=== PATIENT | female | born 1950 | race Caucasian/White ===

== ENCOUNTER 2019-03-25 16:48 | Emergency (ER) | payer MEDICARE ==
[~2019-03-25] VITALS: Ht 152.4 cm; Wt 73.0 kg
[~2019-03-25 16:48] MED LIST: ALBU2.5V8 INH; ATOR20TA58 PO; CARB1TAB43 PO; FLUT1DIS IH; HYDR-2769 PO; LEVO100T5 PO; LEVO50TA5 PO; MULT-208 PO; OXYC1TAB15 PO; PANT40TA77 PO; PREG75CA PO; ROPI1TAB PO; TRAZ-118 PO; WARF1TAB74 PO; [UNRECOGNIZED DRUG - OTHER]; [UNRECOGNIZED DRUG - REMARK]
[2019-03-25] MEDS ORDERED: rOPINIRole 1 MG TABLET. PO ONE (17:30)
[2019-03-25] MEDS ORDERED: CARBIDOPA/LEVODOPA 25/100MG TABLET PO ONE (17:30)
--- NOTE | 2019-03-25 17:30 | PHYS DOC ---
Past Medical History Past Medical History: Diabetes-Type II Additional Past Medical Histor: RLS Alcohol Use: None Drug Use: None Adult General Chief Complaint Chief Complaint: UPPER EXTREMITY PAIN HPI HPI Patient is a 68-year-old female with past medical history of restless leg syndrome and diabetes mellitus is presenting to the emergency department with restless arm and restless leg. Patient states that she ran out of her medication on Sunday and since then has developed increasing movement of the right leg and right arm which she cannot control. She states that this is never happened before and she controls her restless leg syndrome with ropinirole and carbidopa/levodopa. She states that she can get back to the pharmacy tonight but wanted to make sure that she was not having a stroke. Patient has no focal neurologic deficits. Patient denies fever, chills, nausea, vomiting, chest pain, shortness of breath, abdominal pain, constipation, and diarrhea. Denies trauma. Review of Systems Review of Systems Constitutional: Denies fever or chills Eyes: Denies redness or eye pain HENT: Denies nasal congestion or sore throat Respiratory: Denies cough or shortness of breath Cardiovascular: Denies chest pain or palpitations GI: Denies abdominal pain, nausea, or vomiting : Denies dysuria or hematuria Musculoskeletal: Denies back pain or joint pain Integument: Denies rash or skin lesions Neurologic: Denies headache, focal weakness or sensory changes, restless right arm and right leg Complete systems were reviewed and found to be within normal limits, except as documented in this note. Current Medications Current Medications Current Medications Medications (Trade) Dose Ordered Sig/Tammie Start Time Stop Time Status Last Admin Dose Admin Carbidopa/Levodopa (Sinemet 25/100) 1 tab 1X ONCE 03/25/19 17:30 03/25/19 17:31 DC 03/25/19 17:40 1 TAB Lorazepam (Ativan Inj) 1 mg 1X ONCE 03/25/19 17:30 03/25/19 17:31 DC 03/25/19 17:40 1 MG Ropinirole HCl (Requip) 1 mg 1X ONCE 03/25/19 17:30 03/25/19 17:31 DC 03/25/19 17:40 1 MG Allergies Allergies Allergies Coded Allergies Type Severity Reaction Last Updated Verified No Known Drug Allergies 01/19/15 No Physical Exam Physical Exam Constitutional: Well developed, well nourished, no acute distress, non-toxic appearance HENT: Normocephalic, atraumatic, oropharynx moist Eyes: PERRL, EOMI, conjunctiva normal, no discharge Neck: Normal range of motion, no tenderness, supple Cardiovascular: Heart rate normal, regular rhythm Lungs & Thorax: Bilateral breath sounds clear to auscultation, no wheezing Abdomen: Soft, no tenderness Skin: Warm, dry, no erythema, no rash Back: No tenderness, no CVA tenderness Extremities: No tenderness, ROM intact, no edema, restless arm and restless right leg, tremors decrease with intention of movement Neurologic: Alert and oriented X 3, normal motor function, normal sensory function, no focal deficits noted, NIH of 0 Psychologic: Affect normal, judgement normal, mood normal, mildly anxious Current Patient Data Vital Signs Vital Signs Date Time Temp Pulse Resp B/P (MAP) Pulse Ox O2 Delivery O2 Flow Rate FiO2 03/25/19 17:31 102 188/88 (121) 97 Room Air 03/25/19 16:55 98.1 18 98.1 EKG EKG [] Radiology/Procedures Radiology/Procedures [] Course & Med Decision Making Course & Med Decision Making Patient is a 68-year-old female with past medical history of restless leg syndrome and diabetes that is presenting to the emergency department with restless right leg and restless right arm. Patient was seen and examined at bedside. Physical exam was significant for mild anxiety, right arm and right leg tremor that decreases with intentional movement. Patient states that she has missed her last couple doses of ropinirole and carbidopa/levodopa and that she will be able to get back to the pharmacy later tonight. Patient will be given doses of her home medications along with Ativan for symptomatic improvement. Patient stable for discharge with outpatient follow-up with PCP. Discussed findings and plan with patient and family, who acknowledge understanding and agreement. Dragon Disclaimer Dragon Disclaimer This electronic medical record was generated, in whole or in part, using a voice recognition dictation system. Departure Departure Impression: Primary Impression: Restless arm Additional Impressions: Restless leg Anxiety Disposition: HOME, SELF-CARE Condition: STABLE Referrals: ALISON BRYAN MD (PCP) Patient Instructions: Restless Legs Syndrome Additional Instructions: Please go fill your prescriptions for your medications tonight and continue as previously prescribed. Scripts Ropinirole Hcl (REQUIP) 3 Mg Tablet 3 MG PO QHS, #2 TAB Prov: TANNA YOO DO 03/25/19 Carbidopa/Levodopa (SINEMET 25-100 MG TABLET) 1 Each Tablet 1 TAB PO TID for 2 Days, #6 TAB Prov: TANNA YOO DO 03/25/19 Problem Qualifiers TANNA YOO DO Mar 25, 2019 17:30
[2019-03-25 17:31] VITALS: BP 188/88
[2019-03-25] MEDS ORDERED: CARB1TAB2 PO (18:11)
[2019-03-25] MEDS ORDERED: ROPI3TAB PO (18:11)
== END 2019-03-25 18:15 | disposition home or self-care (01) ==
LOC: ER 16:48
DX: G25.81 Restless legs syndrome (principal); R29.898 Other symptoms and signs involving the musculoskeletal system; E11.9 Type 2 diabetes mellitus without complications
CPT/HCPCS: 96372; 99284; J2060